=== PATIENT | female | born 1930 | race Caucasian/White ===

== ENCOUNTER 2016-08-14 21:18 | Emergency (ER) | payer MEDICARE ==
[~2016-08-14] VITALS: Ht 147.3 cm; Wt 40.9 kg
[2016-08-14 21:44] VITALS: BP 137/72; PULSE 78; RESP 16; O2SAT 100
--- NOTE | 2016-08-14 21:44 | ED.REPORT ---
HPI-Syncope Date of Service Aug 14, 2016 ED Provider: Piyush Kaiser MD Pt is an 86 y.o. female with a hx of Alzheimer's who presents to the ED via EMS accompanied by her son after a period of unresponsiveness (approximately 5 minutes) prior to arrival. Per son pt was at the store with him and appeared to have difficulty walking, while standing in line he noticed her leg was giving out so he grabbed her and assisted her to a chair. He notes that while she was in the chair she slumped with her eyes open and had a blank stare. He denies any slurred speech, facial droop, shaking, seizure, LOC, or focal weakness. Pt had one episode of vomiting today. He does state that pt has had recent dehydration and he had been giving her a lot of prune juice earlier today. Upon arrival to ED he states pt seems to be at baseline. Nursing Notes Stated Complaint: SYNCOPE Chief Complaint: General Complaint Nursing Notes Reviewed: Yes General Time Seen by Provider: 21:44 Chief Complaint Became unresponsive Syncope Description: Single episode Hx Obtained From: Son Unable to Obtain Hx: Patient condition, Mental status Arrived By: Ambulance Onset Occurred: Just prior to arrival Symptom Duration: 1 - 15 minutes Severity: Current: No pain currently Past Medical History Past Medical History Alzheimers Past Surgical History None reported Social History Other Social History: Good social support, Lives with children Ambulatory Status Independent Review of Systems GI: Reports: Vomiting Neurologic: Reports: Problem walking, Syncope, Denies: Focal weakness, Numbness, Seizure, Shaking, Slurred speech Complete sys rev & neg: except as marked. Physical Exam Initial Vital Signs Vital Signs (First) Date Time Temp Pulse Resp B/P Pulse Ox O2 Delivery O2 Flow Rate FiO2 08/14/16 21:44 36.8 78 16 137/72 100 Room Air Initial VS: Reviewed Head / Eyes: Atraumatic, Normocephalic Abdomen / GI: Soft, Non-tender, No guarding, No rebound, No distention Upper Extremities: Vascular intact, Neuro intact Skin: Warm, Dry, No cyanosis Psychiatric: Mood/affect normal, Behavior normal, Normal thought content General/Constitutional: Awake, No acute distress, Well appearing, Well developed, Well hydrated, Well nourished, Not toxic appearing Respiratory / Chest: Atraumatic, Breath sounds NL, Breath sounds = bilat, No respiratory distress, No rales, No rhonchi, No wheezing, No retractions, No stridor Cardiovascular: Heart rate NL, Regular rhythm, Heart sounds NL, No gallop, No murmurs, No rubs, Cap refill not delayed, Peripheral circulation NL Lower Extremity / Pelvis / MS: Atraumatic, Inspection NL, No swelling, Non- tender, No deformity, Neurologic intact, Vascular intact Neurologic: Speech NL Demented Equal strength in extremities No lateralizing neurological findings Interpretation & Diagnostics Lab Results Interpretation Result Diagram: 08/14/16222408/14/162224 Test 08/14/16 22:25 White Blood Count 9.2th/mm3 (3.8-10.1) Red Blood Count 4.11mil/mm3 (3.90-5.20) Hemoglobin 12.2g/dL (12.0-15.6) Hematocrit 36.3% (35.0-46.0) Mean Corpuscular Volume 88.3fL (81-100) Mean Corpuscular Hemoglobin 29.7pg (27.0-35.0) Mean Corpuscular Hemoglobin Concent 33.6% (32.0-37.0) Red Cell Distribution Width 13.0% (12.3-15.4) Platelet Count 233bil/L (150-400) Neutrophils (%) (Auto) 74.1% (40-74) Lymphocytes (%) (Auto) 15.2% (14-46) Monocytes (%) (Auto) 8.6% (4-12) Eosinophils (%) (Auto) 0.4% (0-5) Basophils (%) (Auto) 0.9% (0-3) Band Neutrophils % 1% (1-5) Prothrombin Time 10.3sec (8.1-12.5) Prothromb Time International Ratio 0.96ratio Sodium Level 148mEq/L (134-144) Potassium Level 3.7mEq/L (3.5-5.2) Chloride Level 110mEq/L (97-108) Carbon Dioxide Level 22mmol/L (18-29) Blood Urea Nitrogen 18mg/dL (8-27) Creatinine 0.93mg/dL (0.57-1.00) Estimat Glomerular Filtration Rate 82mL/min (>59) Glucose Level 100mg/dL (60-99) Calcium Level 9.4mg/dL (8.5-10.1) Magnesium Level 1.7mg/dL (1.6-2.6) Total Bilirubin 0.2mg/dL (0.0-1.2) Aspartate Amino Transf (AST/SGOT) 9U/L (0-50) Alanine Aminotransferase (ALT/SGPT) 8U/L (0-32) Alkaline Phosphatase 49U/L (25-165) Troponin T 0.010ug/L (0.0-0.011) Pro-B-Type Natriuretic Peptide 305.5pg/mL (0-738) Total Protein 5.7g/dL (6.4-8.4) Albumin 3.4g/dL (3.4-5.0) Lipase 55U/L (13-60) Hold [place] Tube Received (Received) ECG Interpretation ECG Interpretation: Poor quality Significant artifact Non-specific intraventricular conductional delay No obvious T-wave abnormalities Time: 22:06 Interpreted by: ED physician Normal ECG Interpretation: Normal rate, Normal sinus rhythm (79) Re-Eval/Medical Decision Med Decision/Clinical Course Patient is an 86-year-old female with a history of advanced Alzheimer's dementia who presents to the emergency department with her son and primary child development associate teacher after a possible syncopal event that occurred while at the grocery store. Patient's son states that she seemed unsteady on her feet at which time he helped her to sit down and she appeared unresponsive for a couple of minutes. Upon arrival to the [facility] department the patient is afebrile stable vital signs and in no apparent distress. She is significantly demented though her son states that she is back at her regular baseline. Negative orthostatic vital signs Laboratory studies notable as below: CBC unremarkable Chemistry notable for sodium of 148, otherwise unremarkable Troponin negative Coag normal She was treated with 1 L of normal saline and concern for possible dehydration as evidenced by hypernatremia. I ordered additional workup including head CT, chest x-ray and catheter urinalysis however the patient's son declined this workup. He stated that this was not in line with her goals of care and that he "just wanted to make sure that her vital signs were okay". I explained that we could not definitively rule out intracranial hemorrhage or urinary tract infection in addition to other potential causes of her transient altered mental status. He stated that given that she was back to her baseline that he would like to take her home and observe her. This seems reasonable as intracranial hemorrhage is relatively unlikely given absence of head trauma and that she is not presenting with any UTI symptoms, fevers and that a UTI would be an unlikely cause for a brief syncopal event. Follow-up and return precautions were reviewed in detail with the patient's son verbalizes understanding and agreement with the plan. He will follow closely with their primary physician in the coming week. Source of Hx: Family Re-Evaluation/Progress : Time of Eval: 00:25 Re-Evaluation/Progress Note: Pt rechecked. Pt is at baseline. Discussed plan for discharge, son understands and agrees with plan. Counseled Regarding: Diagnosis Discharge & Departure Impression: Primary Impression: Syncopal episodes Syncope type: unspecified Qualified Code: R55 - Syncope and collapse Additional Impressions: Dehydration Hypernatremia Alzheimer's dementia Alzheimer's disease onset: unspecified onset Dementia behavioral disturbance : with behavioral disturbance Qualified Code: G30.8 - Other Alzheimer's disease Disposition: Home Discharge Condition All VS Reviewed: Yes Condition: Stable Additional Instructions: Thank you for seeking care at emergency room. It is difficult for us to make definitive diagnoses in the ED but we believe that you experienced a syncopal episode. Our primary goal today in the ED was to evaluate you for any life-threatening conditions. Your evaluation was reassuring. In line with you goals of care we did not pursue extensive imaging. Drink plenty of fluids and rest. You should follow-up with your primary doctor in the next week. You should return to the ED immediately if you develop worsening symptoms, weakness, additional syncopal episodes, numbness, tingling, seizures or any other concerning signs or symptoms. Thank you for letting us partake in your care today. Referrals: [facility] Maria L Attestation Portions of this note were transcribed by Billie Isaac. I, Dr. Kaiser personally performed the history, physical exam and medical decision-making; I reviewed and confirmed the accuracy of the information in the transcribed note. Signed by: Maria L Orr, 08/15/16 and 0027. copies to: [facility] Piyush Kaiser MD Aug 14, 2016 21:44 BILLIE ISAAC Aug 14, 2016 22:35
[2016-08-14] MEDS ORDERED: 0.9% Sodium Chloride 1,000 ML IV ONE (21:45)
[2016-08-14 22:15] VITALS: BP_SYST 142; BP_SYST 148; BP_DIAS 78; BP_DIAS 82
[2016-08-14 22:16] VITALS: BP 138/76; PULSE 78
[2016-08-14 22:58] LABS: INR 0.96 ratio
[2016-08-14 23:07] LABS: BASOPHILS % (AUTO) 0.9 % (0-3); EOSINOPHILS % (AUTO) 0.4 % (0-5); MONOCYTES % (AUTO) 8.6 % (4-12); Mean Corpuscular Hemoglobin 29.7 pg (27.0-35.0); Mean Corpuscular Volume 88.3 fL (81-100); NEUTROPHILS % (AUTO) 74.1 % (40-74); Platelet Count 233 bil/L (150-400)
[2016-08-14 23:26] LABS: TROPONIN T 0.01 ug/L (0.0-0.011)
[2016-08-15 00:24] LABS: Magnesium 1.7 mg/dL (1.6-2.6)
[2016-08-15 00:53] VITALS: BP 142/84; PULSE 84; RESP 20; O2SAT 98
== END 2016-08-15 00:56 | disposition home or self-care (01) ==
LOC: EDBD 21:18 → SED 21:18
DX: R55 Syncope and collapse (principal); E86.0 Dehydration; E87.0 Hyperosmolality and hypernatremia; G30.8 Other Alzheimer's disease
CPT/HCPCS: 36415; 80053; 82948; 83690; 83735; 83880; 84484; 85025; 85610; 93005; 96360; 99285; J7030